=== PATIENT | male | born 1950 | race Caucasian/White ===

== ENCOUNTER 2017-01-02 23:42 | Emergency (ER) | payer MEDICARE, OTHER ==
[2017-01-03] MEDS ORDERED: CEPHALEXIN 250 MG CAPSULE PO STA (01:09)
[2017-01-03] MEDS ORDERED: CEPHALEXIN 250 MG CAPSULE PO ONE (01:12)
== END 2017-01-03 01:20 | disposition home or self-care (01) ==
DX: T80.1XXA Vascular complications following infusion, transfusion and therapeutic injection, initial encounter (principal); I80.8 Phlebitis and thrombophlebitis of other sites; T82.898A Other specified complication of vascular prosthetic devices, implants and grafts, initial encounter; I10 Essential (primary) hypertension; J44.9 Chronic obstructive pulmonary disease, unspecified; K21.9 Gastro-esophageal reflux disease without esophagitis; Z87.891 Personal history of nicotine dependence
CPT/HCPCS: 99283; A9270

== ENCOUNTER 2017-03-12 08:53 | Outpatient (CLI) | payer MEDICARE, OTHER | END 2017-03-12 08:54 | disposition home or self-care (01) | LOC: LAB.R 08:53 | PROVIDERS: ATTEND Internal Medicine | DX: E78.2 Mixed hyperlipidemia (principal) ==

== ENCOUNTER 2017-07-23 16:16 | Outpatient (CLI) | payer MEDICARE, OTHER ==
[2017-07-23 13:06] LABS: CHOL/HDL RATIO 6.6 (<5.0); CHOLESTEROL 237 mg/dL; HDL CHOLESTEROL 36 mg/dL; LDL/HDL RATIO 4.4 (<3.6); TRIGLYCERIDES 220 mg/dL; VLDL CHOLESTEROL 44 mg/dL
== END 2017-07-23 16:17 | disposition home or self-care (01) ==
LOC: LAB.R 16:16
PROVIDERS: ATTEND Internal Medicine
DX: E78.5 Hyperlipidemia, unspecified (principal)
CPT/HCPCS: 80061

== ENCOUNTER 2018-01-20 16:11 | Emergency (ER) | payer MEDICARE, OTHER ==
[2018-01-20] MEDS ORDERED: SODIUM CHLORIDE 0.9% 500 ML IV ONE (17:27)
[2018-01-20] MEDS ORDERED: SODIUM CHLORIDE 0.9% 1,000 ML IV ONE (17:27)
[2018-01-20] MEDS ORDERED: METOPROLOL 5 MG/5 ML VIAL IVP STA ×2 (17:28→18:04)
--- NOTE | 2018-01-20 17:32 | ED Physician Documentation ---
PD HPI CHEST PAIN - Stated complaint Stated Complaint: CP/SOA/PASSED OUT - Chief complaint Chief Complaint: Cardiac - History obtained from History obtained from: Patient, Family - History of Present Illness Timing - onset: Today (He is undergoing high-dose steroid treatment for a side effect that he was on for chemotherapy. He has had A. fib before and was cardioverted in May of last year and a different facility. He is maintained on Eliquis. Today at 4 AM he developed burning central chest pain and had a syncopal episode later in the day and is short of breath.) Review of Systems Ten Systems: 10 systems reviewed and negative Constitutional: reports: Fatigue. denies: Fever, Chills Cardiac: reports: Chest pain / pressure. denies: Palpitations, Pedal edema, Calf pain Respiratory: reports: Dyspnea. denies: Cough GI: denies: Abdominal Pain PD PAST MEDICAL HISTORY - Past Medical History Cardiovascular: Hypertension Respiratory: COPD Endocrine/Autoimmune: None GI: GERD : None HEENT: None Psych: None Musculoskeletal: None Derm: None - Past Surgical History Past Surgical History: Yes HEENT: Cataracts - Present Medications Home Medications: Ambulatory Orders Medication Instructions Recorded Confirmed Lansoprazole [Prevacid] 30 mg PO DAILY 05/16/14 01/02/17 Digoxin 125 mcg ORAL DAILY 01/02/17 01/02/17 Metoprolol Succinate 150 mg ORAL BID 01/02/17 01/02/17 Apixaban [Eliquis] 01/20/18 Lisinopril 01/20/18 predniSONE [Prednisone] 01/20/18 01/20/18 - Allergies Allergies/Adverse Reactions: Allergies Allergy/AdvReac Type Severity Reaction Status Date / Time No Known Drug Allergies Allergy Verified 01/02/17 23:50 - Social History Does the pt smoke?: No Smoking Status: Former smoker Does the pt drink ETOH?: Yes Does the pt have substance abuse?: No - Immunizations Immunizations are current?: Yes - POLST Patient has POLST: No PD ED PE NORMAL - Vitals Vital signs reviewed: Yes - General General: Alert and oriented X 3, No acute distress - HEENT HEENT: PERRL, EOMI - Neck Neck: Supple, no meningeal sign, No bony TTP - Cardiac Cardiac: Other (Rapid and irregular) - Respiratory Respiratory: No respiratory distress, Clear bilaterally - Abdomen Abdomen: Normal bowel sounds, Soft, Non tender - Back Back: No CVA TTP, No spinal TTP - Derm Derm: Normal color, Warm and dry - Extremities Extremities: No edema, No calf tenderness / cord - Neuro Neuro: Alert and oriented X 3, Normal speech - Psych Psych: Normal mood, Normal affect Results - Vitals Vitals: Vital Signs - 24 hr 01/20/18 01/20/18 01/20/18 16:25 18:13 18:16 Temperature 35.9 C L Heart Rate 90 127 H 120 H Respiratory 16 18 Rate Blood Pressure 111/58 L 116/67 108/62 O2 Saturation 99 97 01/20/18 01/20/18 01/20/18 18:21 18:42 18:48 Temperature Heart Rate 112 H 116 H 137 H Respiratory Rate Blood Pressure 116/73 112/63 110/68 O2 Saturation 01/20/18 01/20/18 01/20/18 18:57 19:22 19:29 Temperature Heart Rate 130 H 109 H 88 Respiratory Rate Blood Pressure 112/36 L 106/71 96/67 O2 Saturation 01/20/18 01/20/18 01/20/18 19:37 19:46 20:05 Temperature Heart Rate 81 87 46 L Respiratory 16 Rate Blood Pressure 94/67 102/73 106/70 O2 Saturation 99 01/20/18 21:00 Temperature Heart Rate 46 L Respiratory 16 Rate Blood Pressure 113/71 O2 Saturation 100 Oxygen O2 Source Room air - EKG (time done) 1618 Rate: Rate (enter#) (138) Rhythm: Atrial fibrillation [place]: Normal Ischemia: ST depression Computer interpretation: Agree with computer 2006 Rate: Rate (enter#) (44) Rhythm: Sinus bradycardia [place]: Normal Intervals: Normal [place] QRS: Normal Ischemia: Normal ST segments Computer interpretation: Agree with computer - Labs Labs: Laboratory Tests 01/20/18 01/20/18 01/20/18 17:45 17:45 17:45 WBC 11.4 H RBC 5.22 Hgb 15.7 Hct 48.6 MCV 93.1 MCH 30.1 MCHC 32.4 RDW 13.2 Plt Count 411 MPV 7.2 L Neut # 9.0 H Lymph # 1.9 [place] # 0.4 Eos # 0.0 Baso # 0.2 H Absolute Nucleated RBC 0.00 Nucleated RBC % 0.0 Sodium 135 Potassium 4.2 Chloride 103 Carbon Dioxide 25 Anion Gap 7.0 BUN 20 Creatinine 1.0 Estimated GFR (MDRD) 74 L Glucose 111 H Calcium 8.6 Magnesium 2.1 Total Bilirubin 0.6 AST 23 ALT 31 Alkaline Phosphatase 36 L Troponin I Total Protein 6.7 Albumin 3.4 Globulin 3.3 Albumin/Globulin Ratio 1.0 Lipase 22 Last Dose Date UNK Last Dose Time UNK Digoxin 0.5 01/20/18 17:45 WBC RBC Hgb Hct MCV MCH MCHC RDW Plt Count MPV Neut # Lymph # [place] # Eos # Baso # Absolute Nucleated RBC Nucleated RBC % Sodium Potassium Chloride Carbon Dioxide Anion Gap BUN Creatinine Estimated GFR (MDRD) Glucose Calcium Magnesium Total Bilirubin AST ALT Alkaline Phosphatase Troponin I 0.08 Total Protein Albumin Globulin Albumin/Globulin Ratio Lipase Last Dose Date Last Dose Time Digoxin PD MEDICAL DECISION MAKING - ED course ED course: 67-year-old gentleman with symptomatic recurrent atrial fibrillation with RVR starting at 4 AM this morning. He was administered first divided doses of metoprolol without much relief, diltiazem was then administered with rate control but not conversion and during her procainamide drip he did convert, he did have a sinus pause during that but he was observed for a while after that and maintained normal sinus rhythm. Departure - Departure Disposition: 01 Home, Self Care Clinical Impression: Atrial fibrillation Qualifiers: Atrial fibrillation type: paroxysmal Qualified Code(s): I48.0 - Paroxysmal atrial fibrillation Condition: Good Record reviewed to determine appropriate education?: Yes Instructions: Atrial Fibrillation Dc Comments: Continue eliquis. 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 Discharge Date/Time: 01/20/18 21:24
[2018-01-20 17:53] LABS: BASOPHILS # (AUTO) 0.2 10^3/uL (0.0-0.1); BASOPHILS % (AUTO) 1.4 %; EOSINOPHILS % (AUTO) 0.1 %; HGB - HEMOGLOBIN 15.7 g/dL (14.0-18.0); LYMPHOCYTES # (AUTO) 1.9 10^3/uL (1.5-3.5); MEAN CORPUSCULAR HEMOGLOBIN 30.1 pg (27.0-31.0); MEAN CORPUSCULAR HGB CONC 32.4 g/dL (32.0-36.0); MEAN CORPUSCULAR VOLUME 93.1 fL (80.0-94.0); MEAN PLATELET VOLUME 7.2 fL (7.4-11.4); MONOCYTES # (AUTO) 0.4 10^3/uL (0.0-1.0); MONOCYTES % (AUTO) 3.2 %; NEUTROPHILS % (AUTO) 78.3 %; PLT - PLATELET COUNT 411 10^3/uL (130-450); RED BLOOD COUNT 5.22 10^6/uL (4.70-6.10); RED CELL DISTRIBUTION WIDTH 13.2 % (12.0-15.0); WHITE BLOOD COUNT 11.4 x10^3/uL (4.8-10.8)
[2018-01-20 18:04] LABS: ALBUMIN 3.4 g/dL (3.2-5.5); BILIRUBIN,TOTAL 0.6 mg/dL (0.2-1.0); CALCIUM 8.6 mg/dL (8.5-10.3); MAGNESIUM 2.1 mg/dL (1.7-2.8); TOTAL PROTEIN 6.7 g/dL (6.7-8.2)
[2018-01-20] MEDS ORDERED: PROCAINAMIDE 1,000 MG in SODIUM CHLORIDE 0.9% 240 ML IV STA (18:04)
[2018-01-20 18:09] LABS: DIGOXIN 0.5 ng/mL
[2018-01-20] MEDS ORDERED: diltiaZEM INJ 5 MG/ML VIAL IVP STA (18:46)
[2018-01-20 21:02] VITALS: BP 113/71
== END 2018-01-20 21:24 | disposition home or self-care (01) ==
LOC: ED 16:11
DX: I48.0 Paroxysmal atrial fibrillation (principal); I10 Essential (primary) hypertension; J44.9 Chronic obstructive pulmonary disease, unspecified; K21.9 Gastro-esophageal reflux disease without esophagitis; Z87.891 Personal history of nicotine dependence; Z79.01 Long term (current) use of anticoagulants; Z79.52 Long term (current) use of systemic steroids
CPT/HCPCS: 36415; 80053; 80162; 83690; 83735; 84484; 85025; 93005; 96361; 96374; 96375; 96376; 99284; J2690

== ENCOUNTER 2018-02-23 07:25 | Emergency (ER) | payer MEDICARE, OTHER ==
[2018-02-23] MEDS ORDERED: SODIUM CHLORIDE 0.9% 1,000 ML IV ONE ×2 (07:36→12:47)
[2018-02-23] MEDS ORDERED: PROCAINAMIDE 1,000 MG in SODIUM CHLORIDE 0.9% 240 ML IV STA ×4 (07:38)
--- NOTE | 2018-02-23 07:40 | ED Physician Documentation ---
History of Present Illness - Stated complaint Stated Complaint: CHEST PAIN - Chief complaint Chief Complaint: Cardiac - Additonal information Additional information: hx from pt 67 male known hx a fib seen early january for a fib and chemically cardioverted with procainamide is on eliquis is normally sinus this Am developed weakness and soa which he feels signalled the onset of another epsiode of a fib no CP has been compliant with his meds including eliquis since last visit has dced metoprolol and changed to taztia (dilt) Review of Systems Constitutional: denies: Fever Cardiac: denies: Chest pain / pressure, Palpitations Respiratory: reports: Dyspnea GI: denies: Nausea, Vomiting Musculoskeletal: denies: Extremity swelling Neurologic: reports: Generalized weakness Endocrine: reports: Easy bruising / bleeding (eliquis) Immunocompromised: denies: Immunocompromised PD PAST MEDICAL HISTORY - Past Medical History Cardiovascular: Hypertension, Atrial fibrillation Respiratory: COPD Endocrine/Autoimmune: None GI: GERD : None HEENT: None Psych: None Musculoskeletal: None Derm: None - Past Surgical History Past Surgical History: Yes HEENT: Cataracts - Present Medications Home Medications: Ambulatory Orders Medication Instructions Recorded Confirmed Lansoprazole [Prevacid] 30 mg PO DAILY 05/16/14 01/02/17 Digoxin 125 mcg ORAL DAILY 01/02/17 01/02/17 Apixaban [Eliquis] 01/20/18 Lisinopril 01/20/18 Diltiazem HCl [Taztia Xt] 180 mg PO 02/23/18 - Allergies Allergies/Adverse Reactions: Allergies Allergy/AdvReac Type Severity Reaction Status Date / Time No Known Drug Allergies Allergy Verified 01/02/17 23:50 - Social History Does the pt smoke?: No Smoking Status: Former smoker Does the pt drink ETOH?: Yes Does the pt have substance abuse?: No - Immunizations Immunizations are current?: Yes - POLST Patient has POLST: No PD ED PE NORMAL - Vitals Vital signs reviewed: Yes - General General: Alert and oriented X 3 - HEENT HEENT: Atraumatic - Neck Neck: Supple, no meningeal sign - Cardiac Cardiac: No: RRR (tachy) - Respiratory Respiratory: No respiratory distress, Clear bilaterally - Derm Derm: Normal color - Extremities Extremities: No deformity, Normal ROM s pain, No edema, No calf tenderness / cord - Neuro Neuro: Alert and oriented X 3 Results - Vitals Vitals: Vital Signs - 24 hr 02/23/18 02/23/18 07:27 11:52 Temperature 36.0 C L Heart Rate 121 H 100 Respiratory 24 21 Rate Blood Pressure 107/73 105/49 L O2 Saturation 100 96 Oxygen O2 Source Room air - EKG (time done) 0734 Rate: Rate (enter#) (121) Rhythm: Atrial fibrillation Ischemia: ST depression (most c/w dig effect) - Labs Labs: Laboratory Tests 02/23/18 02/23/18 02/23/18 08:17 08:17 08:17 WBC 10.1 RBC 4.45 L Hgb 13.5 L Hct 39.8 L MCV 89.4 MCH 30.4 MCHC 34.0 RDW 12.8 Plt Count 485 H MPV 6.7 L Neut # 5.8 Lymph # 3.2 [place] # 0.8 Eos # 0.2 Baso # 0.0 Absolute Nucleated RBC 0.00 Nucleated RBC % 0.0 Sodium 133 L Potassium 3.7 Chloride 99 L Carbon Dioxide 21 Anion Gap 13.0 BUN 12 Creatinine 1.1 Estimated GFR (MDRD) 67 L Glucose 123 H Calcium 8.7 Troponin I < 0.04 Last Dose Date Last Dose Time Digoxin 02/23/18 08:17 WBC RBC Hgb Hct MCV MCH MCHC RDW Plt Count MPV Neut # Lymph # [place] # Eos # Baso # Absolute Nucleated RBC Nucleated RBC % Sodium Potassium Chloride Carbon Dioxide Anion Gap BUN Creatinine Estimated GFR (MDRD) Glucose Calcium Troponin I Last Dose Date Unknown Last Dose Time Unknown Digoxin 1.1 PD MEDICAL DECISION MAKING - ED course ED course: pt given 1 g procainamide IV s cardioversion went to pt to discuss electric cardivert and he declines 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 he is rate controlled (on CCB BB dig) and also on eliquis so this seems reasonable will call his cardio and plan to dc spoke to cardio Dr Molina who will see pt next Wed at 1130 Am and rec he inc his dilt from 180 daily to 240 daily and continue eliquis and dig Departure - Departure Disposition: Home, Self Care Clinical Impression: Atrial fibrillation Qualifiers: Atrial fibrillation type: unspecified Qualified Code(s): I48.91 - Unspecified atrial fibrillation Condition: Good Instructions: ED Afib Follow-Up: Alex Rowe MD [Primary Care Provider] - Comments: I spoke to Dr Molina and he will see you in the office next Wednesday at 1130 Continue your usual medications but increase the diltiazem from 180 to 240 daily Please monitor your heart rate and blood pressure frequently at home - if your heart rate is over 120 or your blood pressure is less than 100 please come back to the ER or call your senior sales manager Return if worse in any way
[2018-02-23 08:24] LABS: BASOPHILS % (AUTO) 0.4 %; EOSINOPHILS # (AUTO) 0.2 10^3/uL (0.0-0.7); EOSINOPHILS % (AUTO) 2.2 %; HGB - HEMOGLOBIN 13.5 g/dL (14.0-18.0); LYMPHOCYTES # (AUTO) 3.2 10^3/uL (1.5-3.5); LYMPHOCYTES % (AUTO) 31.7 %; MEAN CORPUSCULAR HEMOGLOBIN 30.4 pg (27.0-31.0); MEAN CORPUSCULAR VOLUME 89.4 fL (80.0-94.0); MEAN PLATELET VOLUME 6.7 fL (7.4-11.4); MONOCYTES # (AUTO) 0.8 10^3/uL (0.0-1.0); MONOCYTES % (AUTO) 8.3 %; NEUTROPHILS # (AUTO) 5.8 10^3/uL (1.5-6.6); NEUTROPHILS % (AUTO) 57.4 %; PLT - PLATELET COUNT 485 10^3/uL (130-450); RED BLOOD COUNT 4.45 10^6/uL (4.70-6.10); RED CELL DISTRIBUTION WIDTH 12.8 % (12.0-15.0); WHITE BLOOD COUNT 10.1 x10^3/uL (4.8-10.8)
--- NOTE | 2018-02-23 08:24 | XRAY Preliminary Report ---
Exam: XR CHEST 1 VIEW X-RAY IMPRESSION: No radiographically apparent acute abnormality in the chest. [facility] SITE ID: [id number]
--- NOTE | 2018-02-23 08:25 | XRAY Report ---
EXAM: CHEST RADIOGRAPHY EXAM DATE: 02/23/2018 07:56 AM. CLINICAL HISTORY: [place]. COMPARISON: 02/25/2015. TECHNIQUE: 1 view. 2 images are provided. FINDINGS: Lungs/Pleura: No focal consolidation evident. No pleural effusion. No pneumothorax. Mediastinum: Borderline enlargement of the cardiac silhouette. Other: None. IMPRESSION: No radiographically apparent acute abnormality in the chest. [facility] Referring Provider Line: [phone] SITE ID: [id number]
[2018-02-23 08:35] LABS: CALCIUM 8.7 mg/dL (8.5-10.3); CREATININE 1.1 mg/dL (0.6-1.2)
[2018-02-23 08:48] LABS: DIGOXIN 1.1 ng/mL
[2018-02-23 11:52] VITALS: BP 105/49
== END 2018-02-23 14:45 | disposition home or self-care (01) ==
LOC: ED 07:25
DX: I48.91 Unspecified atrial fibrillation (principal); I10 Essential (primary) hypertension; J44.9 Chronic obstructive pulmonary disease, unspecified; Z87.891 Personal history of nicotine dependence; Z79.01 Long term (current) use of anticoagulants; K21.9 Gastro-esophageal reflux disease without esophagitis
CPT/HCPCS: 36415; 71045; 80048; 80162; 84484; 85025; 93005; 96374; 96376; 99282; 99284; J2690

== ENCOUNTER 2018-10-13 19:18 | Outpatient (CLI) | payer MEDICARE, OTHER | END 2018-10-13 19:19 | disposition critical access hospital (66) | LOC: EMS 19:18 | PROVIDERS: ATTEND Surgery | DX: F41.9 Anxiety disorder, unspecified (principal) | CPT/HCPCS: A0425; A0427 ==

== ENCOUNTER 2018-10-13 19:42 | Inpatient (IN) | payer MEDICARE, OTHER ==
[2018-10-13] MEDS ORDERED: diltiaZEM INJ 5 MG/ML VIAL IVP STA ×4 (20:02→22:41)
--- NOTE | 2018-10-13 20:05 | ED Physician Documentation ---
History of Present Illness - Stated complaint Stated Complaint: SHAKING - Chief complaint Chief Complaint: General - History obtained from History obtained from: Patient - History of Present Illness Timing: Today (This is a 68-year-old gentleman with history of melanoma and he went to the [facility] for an injection of T VAC today in his right leg where he has tumors. He has a history of long-standing atrial fibrillation maintained on metoprolol 150 mg twice daily. On the way home from the clinic he developed shaking all over and felt very cold with a nonproductive cough. Denies urinary complaints or pain. He has had this same medication in the past without issues.) Review of Systems Constitutional: reports: Chills Nose: denies: Rhinorrhea / runny nose Throat: denies: Sore throat Cardiac: denies: Chest pain / pressure, Palpitations Respiratory: reports: Dyspnea, Cough GI: denies: Abdominal Pain, Nausea, Vomiting PD PAST MEDICAL HISTORY - Past Medical History Past Medical History: Yes Cardiovascular: Hypertension, Atrial fibrillation Respiratory: COPD Endocrine/Autoimmune: None GI: GERD : None HEENT: None Psych: None Musculoskeletal: None Derm: None Other Past Medical History: Melanom [place] - Past Surgical History Past Surgical History: Yes HEENT: Cataracts - Present Medications Home Medications: Ambulatory Orders Medication Instructions Recorded Confirmed Lansoprazole [Prevacid] 30 mg PO DAILY 05/16/14 01/02/17 Digoxin 125 mcg ORAL DAILY 01/02/17 01/02/17 Apixaban [Eliquis] 01/20/18 Lisinopril 01/20/18 Diltiazem HCl [Taztia Xt] 180 mg PO 02/23/18 - Allergies Allergies/Adverse Reactions: Allergies Allergy/AdvReac Type Severity Reaction Status Date / Time No Known Drug Allergies Allergy Verified 10/13/18 19:55 - Social History Does the pt smoke?: No Smoking Status: Never smoker Does the pt drink ETOH?: Yes ETOH Use: Beer Does the pt have substance abuse?: No - Immunizations Immunizations are current?: Yes - POLST Patient has POLST: No PD ED PE NORMAL - Vitals Vital signs reviewed: Yes - General General: Alert and oriented X 3 (He is in rapid atrial fibrillation and he is tremulous) - HEENT HEENT: PERRL, EOMI - Neck Neck: Supple, no meningeal sign, No bony TTP - Cardiac Cardiac: Other (Irregularly irregular without murmur, rapid) - Respiratory Respiratory: Other (Diminished throughout) - Abdomen Abdomen: Soft, Non tender - Back Back: No CVA TTP, No spinal TTP - Derm Derm: Normal color, Warm and dry - Extremities Extremities: Normal ROM s pain, No calf tenderness / cord - Neuro Neuro: Alert and oriented X 3, Normal speech - Psych Psych: Normal mood, Normal affect Results - Vitals Vitals: Vital Signs - 24 hr 10/13/18 10/13/18 10/13/18 19:46 20:27 20:43 Temperature 37.0 C Heart Rate 141 H 150 H 125 H Respiratory 23 32 H 22 Rate Blood Pressure 134/98 H 145/83 H 141/95 H O2 Saturation 100 95 10/13/18 10/13/18 10/13/18 20:48 20:59 21:11 Temperature 37.0 C Heart Rate 120 H 119 H 108 H Respiratory 30 H 22 19 Rate Blood Pressure 154/77 H 131/78 H 131/78 H O2 Saturation 97 98 96 10/13/18 10/13/18 10/13/18 21:31 21:39 22:13 Temperature Heart Rate 105 H 94 118 H Respiratory 25 H 19 22 Rate Blood Pressure 135/64 H 130/85 H 143/76 H O2 Saturation 97 97 95 Oxygen O2 Source Room air - EKG (time done) 2017 Rate: Rate (enter#) (143) Rhythm: Atrial fibrillation [place]: Normal QRS: Low voltage Ischemia: Other (Mild lateral ST depression which is likely rate related.) Computer interpretation: Agree with computer - Labs Labs: Laboratory Tests 10/13/18 10/13/18 10/13/18 19:50 20:31 20:58 WBC RBC Hgb Hct MCV MCH MCHC RDW Plt Count MPV Neut # (Auto) Lymph # (Auto) [place] # (Auto) Eos # (Auto) Baso # (Auto) Absolute Nucleated RBC Nucleated RBC % Sodium 136 Potassium 3.9 Chloride 103 Carbon Dioxide 21 Anion Gap 12.0 BUN 16 Creatinine 1.2 Estimated GFR (MDRD) 60 L Glucose 102 H Lactic Acid Calcium 9.0 Total Bilirubin 1.1 H AST 33 ALT 29 Alkaline Phosphatase 39 L Total Creatine Kinase 61 CK-MB (CK-2) Troponin I Total Protein 7.5 Albumin 4.1 Globulin 3.4 Albumin/Globulin Ratio 1.2 Lipase 34 Urine Color YELLOW Urine Clarity CLEAR Urine pH 6.0 Ur Specific [place] 1.025 Urine Protein NEGATIVE Urine Glucose (UA) NEGATIVE Urine Ketones NEGATIVE Urine Occult Blood SMALL H Urine Nitrite NEGATIVE Urine Bilirubin NEGATIVE Urine Urobilinogen 0.2 (NORMAL) Ur Leukocyte Esterase NEGATIVE Urine RBC 0-5 Urine WBC 0-3 Ur Squamous Epith Cells RARE Squamous Urine Bacteria Rare Ur Microscopic Review INDICATED Urine Culture Comments NOT INDICATED Last Dose Date Last Dose Time Digoxin Ethyl Alcohol < 5.0 Influenza A (Rapid) Negative Influenza B (Rapid) Negative 10/13/18 10/13/18 10/13/18 20:58 20:58 20:58 WBC RBC Hgb Hct MCV MCH MCHC RDW Plt Count MPV Neut # (Auto) Lymph # (Auto) [place] # (Auto) Eos # (Auto) Baso # (Auto) Absolute Nucleated RBC Nucleated RBC % Sodium Potassium Chloride Carbon Dioxide Anion Gap BUN Creatinine Estimated GFR (MDRD) Glucose Lactic Acid 3.7 H* Calcium Total Bilirubin AST ALT Alkaline Phosphatase Total Creatine Kinase CK-MB (CK-2) 1.3 Troponin I < 0.04 Total Protein Albumin Globulin Albumin/Globulin Ratio Lipase Urine Color Urine Clarity Urine pH Ur Specific [place] Urine Protein Urine Glucose (UA) Urine Ketones Urine Occult Blood Urine Nitrite Urine Bilirubin Urine Urobilinogen Ur Leukocyte Esterase Urine RBC Urine WBC Ur Squamous Epith Cells Urine Bacteria Ur Microscopic Review Urine Culture Comments Last Dose Date Not Reportable Last Dose Time Not Reportable Digoxin 0.6 Ethyl Alcohol Influenza A (Rapid) Influenza B (Rapid) 10/13/18 21:54 WBC 12.8 H RBC 4.51 L Hgb 14.4 Hct 43.3 MCV 95.9 H MCH 31.9 H MCHC 33.2 RDW 14.0 Plt Count 254 MPV 7.8 Neut # (Auto) 10.5 H Lymph # (Auto) 1.4 L [place] # (Auto) 0.4 Eos # (Auto) 0.3 Baso # (Auto) 0.1 Absolute Nucleated RBC 0.02 Nucleated RBC % 0.1 Sodium Potassium Chloride Carbon Dioxide Anion Gap BUN Creatinine Estimated GFR (MDRD) Glucose Lactic Acid Calcium Total Bilirubin AST ALT Alkaline Phosphatase Total Creatine Kinase CK-MB (CK-2) Troponin I Total Protein Albumin Globulin Albumin/Globulin Ratio Lipase Urine Color Urine Clarity Urine pH Ur Specific [place] Urine Protein Urine Glucose (UA) Urine Ketones Urine Occult Blood Urine Nitrite Urine Bilirubin Urine Urobilinogen Ur Leukocyte Esterase Urine RBC Urine WBC Ur Squamous Epith Cells Urine Bacteria Ur Microscopic Review Urine Culture Comments Last Dose Date Last Dose Time Digoxin Ethyl Alcohol Influenza A (Rapid) Influenza B (Rapid) - Rads (name of study) 1v chest Radiology: EMP read contemporaneously (Left basilar opacity) PD MEDICAL DECISION MAKING - ED course ED course: This is a 68-year-old gentleman with metastatic melanoma and atrial fibrillation who presents with Reiger's and atrial fibrillation with RVR and acute cough. His atrial fibrillation was treated with divided doses of diltiazem resulting in borderline rate control as well as his usual oral metoprolol. Lab work and chest x-ray demonstrate a left basilar pneumonia with elevated white count and lactate for which he was administered IV fluids, Rocephin, and azithromycin after blood cultures were obtained. Spoke with Dr. Huff for admission at 10:37 PM. Departure - Departure Disposition: [facility] DC/Xfer Clinical Impression: Atrial fibrillation with RVR Pneumonia Qualifiers: Pneumonia type: due to unspecified organism Laterality: left Lung location: lower lobe of lung Qualified Code(s): J18.1 - Lobar pneumonia, unspecified organism Condition: Serious Forms: Activity restrictions
[2018-10-13 20:09] LABS: BILIRUBIN,URINE NEGATIVE (NEGATIVE); GLUCOSE, URINE (UA) NEGATIVE (NEGATIVE); KETONES,URINE (UA) NEGATIVE (NEGATIVE); LEUKOCYTE ESTERASE, URINE NEGATIVE (NEGATIVE); NITRITE,URINE NEGATIVE (NEGATIVE); OCCULT BLOOD,URINE SMALL (NEGATIVE); PROTEIN,URINE NEGATIVE (NEGATIVE); UROBILINOGEN,URINE 0.2 (NORMAL) E.U./dL (NORMAL)
[2018-10-13 20:10] LABS: CLARITY,URINE CLEAR (CLEAR)
[2018-10-13 20:20] LABS: BACTERIA,URINE Rare /HPF (None Seen); RBC,URINE 0-5 /HPF (0-5); SQUAMOUS EPITHELIAL CELL,UR RARE Squamous (<= Few)
[2018-10-13] MEDS ORDERED: METOPROLOL SUCCINATE 50 MG TABLET PO ONE (20:35)
[2018-10-13] MEDS ORDERED: METOPROLOL SUCCINATE 50 MG TABLET PO STA (20:41)
[2018-10-13 21:15] LABS: ALBUMIN 4.1 g/dL (3.2-5.5); ALBUMIN/GLOBULIN RATIO 1.2 (1.0-2.2); ALKALINE PHOSPHATASE 39 IU/L (42-121); ALT ALANINE AMINOTRANSFERASE 29 IU/L (10-60); AST ASPARTATE AMINOTRANSFERASE 33 IU/L (10-42); BILIRUBIN,TOTAL 1.1 mg/dL (0.2-1.0); BUN - BLOOD UREA NITROGEN 16 mg/dL (6-20); CARBON DIOXIDE - CO2 21 mmol/L (21-32); CHLORIDE 103 mmol/L (101-111); CK- CREATINE KINASE 61 IU/L (22-269); CREATININE 1.2 mg/dL (0.6-1.2); GFR - MDRD 60 (>89); GLUCOSE 102 mg/dL (70-100); LIPASE 34 U/L (22-51); SODIUM 136 mmol/L (135-145); TOTAL PROTEIN 7.5 g/dL (6.7-8.2)
[2018-10-13 21:16] LABS: TROPONIN I < 0.04 ng/mL (<0.49)
--- NOTE | 2018-10-13 21:16 | XRAY Report ---
Reason: rigors, cough Procedure Date: 10/13/2018 Accession Number: [id number] / [id number] Procedure: XR - Chest 1 View X-Ray CPT Code: 58400 FULL RESULT: EXAM: CHEST RADIOGRAPHY EXAM DATE: 10/13/2018 09:00 PM. CLINICAL HISTORY: Rigors, cough. COMPARISON: CHEST 1 VIEW 02/23/2018 7:56 AM. TECHNIQUE: 1 view. FINDINGS: Lungs/Pleura: Lung volumes mildly low. Mild left basilar airspace opacity. Right lung clear. No peripheral interstitial or megaly. No pneumothorax or gross pleural fluid. Mediastinum: Within exam limitations, the cardiomediastinal contour is normal. Other: None. IMPRESSION: Mildly low lung volumes with mild left basilar airspace opacity which may reflect atelectasis or pneumonitis. [facility]
[2018-10-13 21:18] LABS: CREATINE KINASE MB 1.3 ng/mL (0.6-6.3)
[2018-10-13] MEDS ORDERED: SODIUM CHLORIDE 0.9% 1,000 ML IV ONE (21:19)
[2018-10-13 21:24] LABS: DIGOXIN 0.6 ng/mL
[2018-10-13 22:03] LABS: BASOPHILS # (AUTO) 0.1 10^3/uL (0.0-0.1); EOSINOPHILS # (AUTO) 0.3 10^3/uL (0.0-0.7); EOSINOPHILS % (AUTO) 2.6 %; HGB - HEMOGLOBIN 14.4 g/dL (14.0-18.0); LYMPHOCYTES # (AUTO) 1.4 10^3/uL (1.5-3.5); LYMPHOCYTES % (AUTO) 10.9 %; MEAN CORPUSCULAR HEMOGLOBIN 31.9 pg (27.0-31.0); MEAN CORPUSCULAR HGB CONC 33.2 g/dL (32.0-36.0); MEAN CORPUSCULAR VOLUME 95.9 fL (80.0-94.0); MEAN PLATELET VOLUME 7.8 fL (7.4-11.4); MONOCYTES # (AUTO) 0.4 10^3/uL (0.0-1.0); MONOCYTES % (AUTO) 2.9 %; NEUTROPHILS # (AUTO) 10.5 10^3/uL (1.5-6.6); NEUTROPHILS % (AUTO) 82.6 %; PLT - PLATELET COUNT 254 10^3/uL (130-450); RED BLOOD COUNT 4.51 10^6/uL (4.70-6.10); WHITE BLOOD COUNT 12.8 x10^3/uL (4.8-10.8)
[2018-10-13] MEDS ORDERED: ONDANSETRON 4 MG/2 ML VIAL IVP STA (22:12)
[2018-10-13] MEDS ORDERED: cefTRIAXone 2 GM in SODIUM CHLORIDE 0.9% MINIBAG 100 ML IV STA (22:24)
[2018-10-13] MEDS ORDERED: AZITHROMYCIN INJ 500 MG in SODIUM CHLORIDE 0.9% 250 ML IV STA (22:24)
[2018-10-13] MEDS ORDERED: HYDROcod/ACETAM 5/325 MG TABLET PO PRN (23:24)
[2018-10-13] MEDS ORDERED: ACETAMINOPHEN 325 MG TABLET PO PRN (23:24)
[2018-10-13] MEDS ORDERED: ONDANSETRON 4 MG/2 ML VIAL IVP PRN (23:24)
[2018-10-13] MEDS ORDERED: TEMAZEPAM 15 MG CAPSULE PO PRN (23:24)
[2018-10-13] MEDS ORDERED: MORPHINE 2 MG/ML CARPUJECT IVP PRN (23:24)
[2018-10-13] MEDS ORDERED: PROCHLORPERAZINE 10 MG/2 ML VIAL IVP PRN (23:24)
--- NOTE | 2018-10-13 23:43 | HISTORY & PHYSICAL EXAMINATION ---
Chief Complaint - Chief Complaint Chief Complaint: Shaking and chills History of Present Illness - Admitted From Admitted From:: Emergency department - History Obtained From Records Reviewed: Emergency department records History obtained from: Dr. 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 He went there today for a T VAC, which is a transcutaneous injectable immunomodulator treatment. Things were going fairly well however [place] [facility] he started to have violent shaking and chills and described what is likely rigors. Shortly after they returned to the [facility] and started their drive back [place], he continued to feel worse and at this point paramedics were called. Patient has a known history of atrial fibrillation but this has been fairly well controlled and is status post 2 failed ablations in the last year. In the emergency room evaluation produced findings of atrial fibrillation with rapid ventricular response with heart rates in the 150s initially.He eventually received 50 mg of IV Cardizem, 10 mg at a time,Which was successful in bringing his heart rate down to the 115-120 range. Labs were also pertinent for an elevated lactic acid of 3.7 with only mildly increased WBCs and no other signif icant abnormality. A chest x-ray was however suggestive of a possible consolidation at the base of the left lung and hospitalist service was called to admit the patient for possible community-acquired pneumonia with sepsis and atrial fibrillation with rapid ventricular response. History - Past Medical History Cardiovascular: reports: Hypertension, Atrial fibrillation Respiratory: reports: COPD Endocrine/Autoimmune: reports: None GI: reports: GERD : reports: None HEENT: reports: None Psych: reports: None Musculoskeletal: reports: None Derm: reports: None, Other (Malignant melanoma with initial lesion on the right heel and subsequent lesions on the inner thigh and proximal thigh) MRSA Hx?: No Other Past Medical History: Melanom CA - Past Surgical History HEENT: reports: Cataracts Derm: reports: Skin grafts, Skin cancer surgery - Family & Social History Family History Comment/Other: Patient denies any family medical history Living arrangement: At home Living Situation: With spouse/s.o. Social History Notes: Patient is a retired [place] who lives in [place]. Admits to drinking a 6 pack a day for a long period of time. Several years ago he went 4 months without drinking and never had withdrawal symptoms. - Substance History Use: Uses substance without health or social issues: Alcohol - POLST Patient has POLST: No POLST Status: Full Code Meds/Allgy - Home Medications Home Medications: Ambulatory Orders Medication Instructions Recorded Confirmed Lansoprazole [Prevacid] 30 mg PO DAILY 05/16/14 01/02/17 Digoxin 125 mcg ORAL DAILY 01/02/17 01/02/17 Apixaban [Eliquis] 01/20/18 Lisinopril 01/20/18 Diltiazem HCl [Taztia Xt] 180 mg PO 02/23/18 - Allergies Allergies/Adverse Reactions: Allergies Allergy/AdvReac Type Severity Reaction Status Date / Time No Known Drug Allergies Allergy Verified 10/13/18 19:55 Review of Systems - Constitutional Constitutional: reports: Chills, Malaise, Weakness. denies: Night sweats, Weight loss - Cardiovascular Cariovascular: reports: Irregular heart rate. denies: Chest pain - Respiratory Respiratory: reports: Cough, SOB with exertion, Other (Patient describes chest congestion consistent with having a cold) - Gastrointestinal Gastrointestinal: denies: Abdominal pain, Abdominal distention - Genitourinary Genitourinary: denies: Dysuria, Frequency - Integumentary Integumentary: reports: Other (No redness or erythema or signs of infection from recent biopsy sites) - All Other Systems All Other Systems: reports: Reviewed and negative Prior Level of Functionality: Independent Exam - Vital Signs Reviewed Vital Signs: Yes Vital Signs: Vital Signs x48h Temp Pulse Resp BP Pulse Ox 10/13/18 23:36 104 H 17 113/69 95 10/13/18 23:05 37.3 C 88 18 133/77 H 97 10/13/18 22:13 118 H 22 143/76 H 95 10/13/18 21:39 94 19 130/85 H 97 10/13/18 21:31 105 H 25 H 135/64 H 97 10/13/18 21:11 108 H 19 131/78 H 96 10/13/18 20:59 37.0 C 119 H 22 131/78 H 98 10/13/18 20:48 120 H 30 H 154/77 H 97 10/13/18 20:43 125 H 22 141/95 H 95 10/13/18 20:27 150 H 32 H 145/83 H 10/13/18 19:46 37.0 C 141 H 23 134/98 H 100 Vital Signs - 24 hr 10/13/18 10/13/18 10/13/18 19:46 20:27 20:43 Temperature 37.0 C Heart Rate 141 H 150 H 125 H Respiratory 23 32 H 22 Rate Blood Pressure 134/98 H 145/83 H 141/95 H O2 Saturation 100 95 10/13/18 10/13/18 10/13/18 20:48 20:59 21:11 Temperature 37.0 C Heart Rate 120 H 119 H 108 H Respiratory 30 H 22 19 Rate Blood Pressure 154/77 H 131/78 H 131/78 H O2 Saturation 97 98 96 10/13/18 10/13/18 10/13/18 21:31 21:39 22:13 Temperature Heart Rate 105 H 94 118 H Respiratory 25 H 19 22 Rate Blood Pressure 135/64 H 130/85 H 143/76 H O2 Saturation 97 97 95 10/13/18 10/13/18 10/14/18 23:05 23:36 00:07 Temperature 37.3 C Heart Rate 88 104 H 94 Respiratory 18 17 21 Rate Blood Pressure 133/77 H 113/69 101/54 L O2 Saturation 97 95 98 Oxygen O2 Source Room air - Physical Exam General Appearance: positive: No acute distress Eyes Bilateral: positive: Normal inspection ENT: positive: ENT inspection nml Neck: positive: Nml inspection Respiratory: positive: Chest non-tender, No respiratory distress, Breath sounds nml Cardiovascular: positive: No murmur, No gallop, Irregularly irregular, Tachycardia Peripheral Pulses: positive: 2+ Abdomen: positive: Non-tender, No organomegaly, Nml bowel sounds, No distention Skin: positive: Color nml, Other (Patient has a visible healed skin graft on the plantar aspect of the right calcaneus, he has a few areas of dry skin on the medial proximal thigh with a bandage covering a recent biopsy site that looks CDI, there is also a proximal right groin biopsy site that also appears to be CDI. Overall there is no concerning acute abnormalities to the skin exam) Extremities: positive: Non-tender, Full ROM, No pedal edema Neurologic/Psychiatric: positive: Oriented x3, CN's nml (2-12), Motor nml Sepsis Event Note (H) - Evaluation Current Stage of Sepsis: Sepsis Possible source of Sepsis: positive: Pulmonary, Skin/soft tissue Confirmed Source and Organism (if known) of Sepsis: Based on chest x-ray, most probable is pulmonary Conclusion/Plan - Problem List (1) Sepsis due to pneumonia Conclusion/Plan: Based on chest x-ray results, most likely patient has community-acquired pneumonia with sepsis. This is likely triggered his atrial fibrillation into an RVR. Otherwise however his blood pressure is maintained and his overall presentation appearing to be toxic. He seems to have responded well to IV fluids and initial doses of antibiotics. The patient will be admitted on azithromycin and Rocephin with IV fluids and repeat lactic acid will be performed at the 3-hour nessa. His sepsis was present on admission. (2) Atrial fibrillation with RVR Conclusion/Plan: Secondary to sepsis most likely, has responded well to Cardizem though with his sepsis this is likely clouding the picture of tachycardia. We will continue his home medications including his metoprolol which is very high dose of 300 mg daily, and if necessary will add long acting Cardizem orally.He does have a associate doctor and I am unable to confirm his most recent echocardiogram. Tomorrow if we cannot locate one at the medical records office of his associate doctor we may need to order a repeat echocardiogram. (3) Metastatic melanoma Conclusion/Plan: Recent treatment is unlikely to be directly related to the sepsis however may be worth a call to the oncologist office tomorrow just to let them know and also see if there is anything we need to be aware of with respect to his recent immunomodulating treatment (4) GERD (gastroesophageal reflux disease) Conclusion/Plan: Continue home Protonix Qualifiers: Esophagitis presence: esophagitis presence not specified Qualified Code(s): K21.9 - Gastro-esophageal reflux disease without esophagitis (5) Alcohol abuse Conclusion/Plan: Patient was counseled to cut down on his alcohol. He denies any known history of withdrawal. I will add as needed Ativan and pending any more signs of alcohol withdrawal will start CIAZ protocol. - Lab Results Lab results reviewed: Yes Fish Bones: 10/13/18 21:54 10/13/18 20:58 - Diagnostic Imaging Results Diagnostic Imaging Results: positive: Final report reviewed, Read independently - EKG Results EKG Interpreted Independently: Yes EKG Comparison: Old EKG unavailable Core Measures - Anticipated LOS I expect patient to be DC'd or transferred within 96 hours.: Yes - DVT/VTE - Prophylaxis VTE/DVT Device ordered at admit?: Yes
[2018-10-14] MEDS ORDERED: LORazepam 2 MG/ML VIAL IVP PRN (00:34)
[2018-10-14] MEDS: SODIUM CHLORIDE FLUSH 0.9% 10 ML SYRINGE IVP SCH ×3 (02:10→21:51)
[2018-10-14] MEDS: SODIUM CHLORIDE 0.9% 1,000 ML IV SCH ×2 (02:13→11:13)
[2018-10-14 05:02] LABS: HGB - HEMOGLOBIN 13.2 g/dL (14.0-18.0); MEAN CORPUSCULAR HEMOGLOBIN 32.3 pg (27.0-31.0); MEAN CORPUSCULAR HGB CONC 34.6 g/dL (32.0-36.0); MEAN CORPUSCULAR VOLUME 93.3 fL (80.0-94.0); MEAN PLATELET VOLUME 8.1 fL (7.4-11.4); RED BLOOD COUNT 4.1 10^6/uL (4.70-6.10); RED CELL DISTRIBUTION WIDTH 14.2 % (12.0-15.0); WHITE BLOOD COUNT 13.3 x10^3/uL (4.8-10.8)
[2018-10-14 05:13] LABS: CALCIUM 8.1 mg/dL (8.5-10.3); CREATININE 1.1 mg/dL (0.6-1.2)
[2018-10-14] MEDS: PANTOPRAZOLE 40 MG VIAL IVP SCH (06:35)
[2018-10-14] MEDS: SODIUM CHLORIDE FLUSH 0.9% 10 ML SYRINGE IVP PRN (06:36)
[2018-10-14] MEDS: POLYETHYLENE GLYCOL 3350 17 GM PACKET PO SCH (08:51)
[2018-10-14] MEDS: APIXABAN 5 MG TABLET PO SCH ×2 (08:51→21:50)
[2018-10-14] MEDS: LISINOPRIL 5 MG TABLET PO SCH (08:51)
[2018-10-14] MEDS: DIGOXIN 125 MCG TABLET PO SCH (08:51)
[2018-10-14] MEDS ORDERED: METOPROLOL SUCCINATE 50 MG TABLET PO SCH (09:00)
[2018-10-14] MEDS ORDERED: diltiaZEM CD 180 MG CAPSULE PO SCH (09:00)
[2018-10-14] MEDS ORDERED: CALCIUM CARBONATE CHEW 500 MG TABLET PO PRN ×2 (09:23→12:49)
--- NOTE | 2018-10-14 12:54 | PROVIDER PROGRESS NOTE ---
Subjective - Prog Note Date Prog Note Date: 10/14/18 - Subjective Pt reports feeling: Improved Subjective: pt report he feel better. no fever, chill, or chest pain. pt concern his home meds, pharmacy will see pt and confirm his home meds, then will reconcile. Current Medications - Current Medications Current Medications: Active Medications Acetaminophen (Tylenol) 650 mg PO Q4HR PRN PRN Reason: Pain 1 to 4 Hydrocodone Bitart/Acetaminophen ([place] 5/325) 1 tab PO Q4HR PRN PRN Reason: Pain 5 to 7 Apixaban (Eliquis) 5 mg PO BID [facility] Last Admin: 10/14/18 08:51 Dose: 5 mg Calcium Carbonate/Glycine (Tums) 500 mg PO Q4H PRN PRN Reason: Heartburn Digoxin (Lanoxin) 125 mcg PO DAILY [facility] Last Admin: 10/14/18 08:51 Dose: 125 mcg Diltiazem HCl (Cardizem Cd) 180 mg PO DAILY [facility] Last Admin: 10/14/18 08:51 Dose: 180 mg Sodium Chloride (Normal Saline 0.9%) 1,000 mls @ 100 mls/hr IV .Q10H [facility] Last Admin: 10/14/18 11:13 Dose: 100 mls/hr Azithromycin 250 mg/ Sodium (Chloride) 250 mls @ 250 mls/hr IV HS [facility] Ceftriaxone Sodium 2 gm/ (Sodium Chloride) 100 mls @ 200 mls/hr IV DAILY@2200 [facility] Lisinopril (Zestril) 10 mg PO DAILY [facility] Last Admin: 10/14/18 08:51 Dose: 10 mg Lorazepam (Ativan Inj (Vial)) 1 mg IVP Q2HR PRN PRN Reason: Alcohol Withdrawal Morphine Sulfate (Morphine (Carpuject)) 2 mg IVP Q2HR PRN PRN Reason: Pain 8 to 10 Ondansetron HCl (Zofran Inj) 4 mg IVP Q6HR PRN PRN Reason: Nausea / Vomiting Pantoprazole Sodium (Protonix) 40 mg IVP QDAC [facility] Last Admin: 10/14/18 06:35 Dose: 40 mg Polyethylene Glycol (Miralax) 17 gm PO DAILY [facility] Last Admin: 10/14/18 08:51 Dose: Not Given Prednisone (Deltasone) 2.5 mg PO DAILY [facility] Prochlorperazine Edisylate (Compazine Inj) 10 mg IVP Q6HR PRN PRN Reason: Nausea / Vomiting Sodium Chloride (Normal Saline Flush 0.9%) 10 ml IVP PRN PRN PRN Reason: NEEDED PER PROVIDER ORDERS Last Admin: 10/14/18 06:36 Dose: 10 ml Sodium Chloride (Normal Saline Flush 0.9%) 10 ml IVP 0100,0900,1700 ESTELA Last Admin: 10/14/18 08:52 Dose: Not Given Temazepam (Restoril) 15 mg PO QPM PRN PRN Reason: Insomnia Digoxin 125 mcg PO DAILY 01/02/17 Apixaban [Eliquis] 5 mg PO BID 01/20/18 Lisinopril 10 mg PO DAILY 01/20/18 Calcium Carbonate [Tums (Calcium Carbonate 500mg)] 500 mg PO Q4H PRN 10/14/18 Metoprolol Succinate [Toprol Xl] 150 mg PO BID 10/14/18 Omeprazole 40 mg PO BID 10/14/18 predniSONE [Deltasone] 2.5 mg PO DAILY 10/14/18 Objective - Vital Signs/Intake & Output Reviewed Vital Signs: Yes Vital Signs: Vital Signs x48h Temp Pulse Resp BP Pulse Ox 10/14/18 07:23 36.6 C 99 19 94/59 L 92 10/14/18 06:02 36.4 C L 98 18 100/49 L 96 Intake & Output: Intake & Output 10/11/18 10/12/18 10/13/18 10/14/18 23:59 23:59 23:59 23:59 Intake Total 1140 1510 Balance 1140 1510 - Objective General Appearance: positive: No acute distress, Alert. negative: Lethargic Eyes Bilateral: positive: Normal inspection, PERRL, No lid inflammation, Conjunctivae nml ENT: positive: ENT inspection nml, Pharynx nml, No signs of dehydration. neg ative: Purulent nasal drainage, Pharyngeal erythema, Oral lesions Neck: positive: Nml inspection, Thyroid nml, No JVD, Trachea midline. negative: Thyromegaly, Lymphadenopathy (R), Lymphadenopathy (L), Stiff neck, Swelling/bruising, Tracheal deviation Respiratory: positive: Chest non-tender, No respiratory distress, Breath sounds nml. negative: Wheezes, Rales, Rhonchi Cardiovascular: positive: Regular rate & rhythm, No murmur, No gallop. negative: Irregularly irregular, Extrasystoles, Tachycardia, Bradycardia, JVD present, Systolic murmur, Diastolic murmur Peripheral Pulses: 2+ Radial (R), 2+ Radial (L), 2+ Dorsalis pedis (R), 2+ Dorsalis pedis (L) Abdomen: positive: Non-tender, No organomegaly, Nml bowel sounds, No distention. negative: Tenderness, Guarding, Rebound Back: positive: Nml inspection. negative: CVA tenderness (R), CVA tenderness (L) Skin: positive: Color nml, No rash, Warm, Dry. negative: Cyanosis, Diaphoresis, Pallor Extremities: positive: Non-tender, Full ROM, Nml appearance. negative: Calf tenderness, Joint swelling, Joe's sign/cords Neurologic/Psychiatric: positive: Oriented x3, Motor nml, Sensation nml, Mood/affect nml. negative: Weakness, Sensory loss, Facial droop, Slurred/abnml speech, Depressed mood/affect - Lab Results Fish Bones: 10/14/18 04:25 10/14/18 04:25 Other Labs: Lab Results x24hrs 10/14/18 10/14/18 10/13/18 Range/Units 04:25 04:25 23:55 WBC 13.3 H (4.8-10.8) x10^3/uL RBC 4.10 L (4.70-6.10) 10^6/uL Hgb 13.2 L (14.0-18.0) g/dL Hct 38.2 L (42.0-52.0) % MCV 93.3 (80.0-94.0) fL MCH 32.3 H (27.0-31.0) pg MCHC 34.6 (32.0-36.0) g/dL RDW 14.2 (12.0-15.0) % Plt Count 253 (130-450) 10^3/uL MPV 8.1 (7.4-11.4) fL Neut # (Auto) (1.5-6.6) 10^3/uL Lymph # (Auto) (1.5-3.5) 10^3/uL Park # (Auto) (0.0-1.0) 10^3/uL Eos # (Auto) (0.0-0.7) 10^3/uL Baso # (Auto) (0.0-0.1) 10^3/uL Absolute Nucleated RBC x10^3/uL Nucleated RBC % /100WBC Sodium 134 L (135-145) mmol/L Potassium 3.8 (3.5-5.0) mmol/L Chloride 103 (101-111) mmol/L Carbon Dioxide 21 (21-32) mmol/L Anion Gap 10.0 (6-13) BUN 16 (6-20) mg/dL Creatinine 1.1 (0.6-1.2) mg/dL Estimated GFR (MDRD) 66 L (>89) Glucose 112 H (70-100) mg/dL Lactic Acid 2.4 H (0.5-2.2) mmol/L Calcium 8.1 L (8.5-10.3) mg/dL Total Bilirubin (0.2-1.0) mg/dL AST (10-42) IU/L ALT (10-60) IU/L Alkaline Phosphatase (42-121) IU/L Total Creatine Kinase (22-269) IU/L CK-MB (CK-2) (0.6-6.3) ng/mL Troponin I (<0.49) ng/mL Total Protein (6.7-8.2) g/dL Albumin (3.2-5.5) g/dL Globulin (2.1-4.2) g/dL Albumin/Globulin Ratio (1.0-2.2) Lipase (22-51) U/L Urine Color Urine Clarity (CLEAR) Urine pH (5.0-7.5) PH Ur Specific [place] (1.002-1.030) Urine Protein (NEGATIVE) mg/dL Urine Glucose (UA) (NEGATIVE) mg/dL Urine Ketones (NEGATIVE) mg/dL Urine Occult Blood (NEGATIVE) Urine Nitrite (NEGATIVE) Urine Bilirubin (NEGATIVE) Urine Urobilinogen (NORMAL) E.U./dL Ur Leukocyte Esterase (NEGATIVE) Urine RBC (0-5) /HPF Urine WBC (0-3) /HPF Ur Squamous Epith Cells (<= Few) Urine Bacteria (None Seen) /HPF Ur Microscopic Review Urine Culture Comments Last Dose Date Last Dose Time Digoxin ng/mL Ethyl Alcohol mg/dL Influenza A (Rapid) (Negative) Influenza B (Rapid) (Negative) 10/13/18 10/13/18 10/13/18 Range/Units 21:54 20:58 20:58 WBC 12.8 H (4.8-10.8) x10^3/uL RBC 4.51 L (4.70-6.10) 10^6/uL Hgb 14.4 (14.0-18.0) g/dL Hct 43.3 (42.0-52.0) % MCV 95.9 H (80.0-94.0) fL MCH 31.9 H (27.0-31.0) pg MCHC 33.2 (32.0-36.0) g/dL RDW 14.0 (12.0-15.0) % Plt Count 254 (130-450) 10^3/uL MPV 7.8 (7.4-11.4) fL Neut # (Auto) 10.5 H (1.5-6.6) 10^3/uL Lymph # (Auto) 1.4 L (1.5-3.5) 10^3/uL Park # (Auto) 0.4 (0.0-1.0) 10^3/uL Eos # (Auto) 0.3 (0.0-0.7) 10^3/uL Baso # (Auto) 0.1 (0.0-0.1) 10^3/uL Absolute Nucleated RBC 0.02 x10^3/uL Nucleated RBC % 0.1 /100WBC Sodium (135-145) mmol/L Potassium (3.5-5.0) mmol/L Chloride (101-111) mmol/L Carbon Dioxide (21-32) mmol/L Anion Gap (6-13) BUN (6-20) mg/dL Creatinine (0.6-1.2) mg/dL Estimated GFR (MDRD) (>89) Glucose (70-100) mg/dL Lactic Acid 3.7 H* (0.5-2.2) mmol/L Calcium (8.5-10.3) mg/dL Total Bilirubin (0.2-1.0) mg/dL AST (10-42) IU/L ALT (10-60) IU/L Alkaline Phosphatase (42-121) IU/L Total Creatine Kinase (22-269) IU/L CK-MB (CK-2) (0.6-6.3) ng/mL Troponin I (<0.49) ng/mL Total Protein (6.7-8.2) g/dL Albumin (3.2-5.5) g/dL Globulin (2.1-4.2) g/dL Albumin/Globulin Ratio (1.0-2.2) Lipase (22-51) U/L Urine Color Urine Clarity (CLEAR) Urine pH (5.0-7.5) PH Ur Specific [place] (1.002-1.030) Urine Protein (NEGATIVE) mg/dL Urine Glucose (UA) (NEGATIVE) mg/dL Urine Ketones (NEGATIVE) mg/dL Urine Occult Blood (NEGATIVE) Urine Nitrite (NEGATIVE) Urine Bilirubin (NEGATIVE) Urine Urobilinogen (NORMAL) E.U./dL Ur Leukocyte Esterase (NEGATIVE) Urine RBC (0-5) /HPF Urine WBC (0-3) /HPF Ur Squamous Epith Cells (<= Few) Urine Bacteria (None Seen) /HPF Ur Microscopic Review Urine Culture Comments Last Dose Date Not Reportable Last Dose Time Not Reportable Digoxin 0.6 ng/mL Ethyl Alcohol mg/dL Influenza A (Rapid) (Negative) Influenza B (Rapid) (Negative) 10/13/18 10/13/18 10/13/18 Range/Units 20:58 20:58 20:31 WBC (4.8-10.8) x10^3/uL RBC (4.70-6.10) 10^6/uL Hgb (14.0-18.0) g/dL Hct (42.0-52.0) % MCV (80.0-94.0) fL MCH (27.0-31.0) pg MCHC (32.0-36.0) g/dL RDW (12.0-15.0) % Plt Count (130-450) 10^3/uL MPV (7.4-11.4) fL Neut # (Auto) (1.5-6.6) 10^3/uL Lymph # (Auto) (1.5-3.5) 10^3/uL Park # (Auto) (0.0-1.0) 10^3/uL Eos # (Auto) (0.0-0.7) 10^3/uL Baso # (Auto) (0.0-0.1) 10^3/uL Absolute Nucleated RBC x10^3/uL Nucleated RBC % /100WBC Sodium 136 (135-145) mmol/L Potassium 3.9 (3.5-5.0) mmol/L Chloride 103 (101-111) mmol/L Carbon Dioxide 21 (21-32) mmol/L Anion Gap 12.0 (6-13) BUN 16 (6-20) mg/dL Creatinine 1.2 (0.6-1.2) mg/dL Estimated GFR (MDRD) 60 L (>89) Glucose 102 H (70-100) mg/dL Lactic Acid (0.5-2.2) mmol/L Calcium 9.0 (8.5-10.3) mg/dL Total Bilirubin 1.1 H (0.2-1.0) mg/dL AST 33 (10-42) IU/L ALT 29 (10-60) IU/L Alkaline Phosphatase 39 L (42-121) IU/L Total Creatine Kinase 61 (22-269) IU/L CK-MB (CK-2) 1.3 (0.6-6.3) ng/mL Troponin I < 0.04 (<0.49) ng/mL Total Protein 7.5 (6.7-8.2) g/dL Albumin 4.1 (3.2-5.5) g/dL Globulin 3.4 (2.1-4.2) g/dL Albumin/Globulin Ratio 1.2 (1.0-2.2) Lipase 34 (22-51) U/L Urine Color Urine Clarity (CLEAR) Urine pH (5.0-7.5) PH Ur Specific [place] (1.002-1.030) Urine Protein (NEGATIVE) mg/dL Urine Glucose (UA) (NEGATIVE) mg/dL Urine Ketones (NEGATIVE) mg/dL Urine Occult Blood (NEGATIVE) Urine Nitrite (NEGATIVE) Urine Bilirubin (NEGATIVE) Urine Urobilinogen (NORMAL) E.U./dL Ur Leukocyte Esterase (NEGATIVE) Urine RBC (0-5) /HPF Urine WBC (0-3) /HPF Ur Squamous Epith Cells (<= Few) Urine Bacteria (None Seen) /HPF Ur Microscopic Review Urine Culture Comments Last Dose Date Last Dose Time Digoxin ng/mL Ethyl Alcohol < 5.0 mg/dL Influenza A (Rapid) Negative (Negative) Influenza B (Rapid) Negative (Negative) 10/13/18 Range/Units 19:50 WBC (4.8-10.8) x10^3/uL RBC (4.70-6.10) 10^6/uL Hgb (14.0-18.0) g/dL Hct (42.0-52.0) % MCV (80.0-94.0) fL MCH (27.0-31.0) pg MCHC (32.0-36.0) g/dL RDW (12.0-15.0) % Plt Count (130-450) 10^3/uL MPV (7.4-11.4) fL Neut # (Auto) (1.5-6.6) 10^3/uL Lymph # (Auto) (1.5-3.5) 10^3/uL Park # (Auto) (0.0-1.0) 10^3/uL Eos # (Auto) (0.0-0.7) 10^3/uL Baso # (Auto) (0.0-0.1) 10^3/uL Absolute Nucleated RBC x10^3/uL Nucleated RBC % /100WBC Sodium (135-145) mmol/L Potassium (3.5-5.0) mmol/L Chloride (101-111) mmol/L Carbon Dioxide (21-32) mmol/L Anion Gap (6-13) BUN (6-20) mg/dL Creatinine (0.6-1.2) mg/dL Estimated GFR (MDRD) (>89) Glucose (70-100) mg/dL Lactic Acid (0.5-2.2) mmol/L Calcium (8.5-10.3) mg/dL Total Bilirubin (0.2-1.0) mg/dL AST (10-42) IU/L ALT (10-60) IU/L Alkaline Phosphatase (42-121) IU/L Total Creatine Kinase (22-269) IU/L CK-MB (CK-2) (0.6-6.3) ng/mL Troponin I (<0.49) ng/mL Total Protein (6.7-8.2) g/dL Albumin (3.2-5.5) g/dL Globulin (2.1-4.2) g/dL Albumin/Globulin Ratio (1.0-2.2) Lipase (22-51) U/L Urine Color YELLOW Urine Clarity CLEAR (CLEAR) Urine pH 6.0 (5.0-7.5) PH Ur Specific [place] 1.025 (1.002-1.030) Urine Protein NEGATIVE (NEGATIVE) mg/dL Urine Glucose (UA) NEGATIVE (NEGATIVE) mg/dL Urine Ketones NEGATIVE (NEGATIVE) mg/dL Urine Occult Blood SMALL H (NEGATIVE) Urine Nitrite NEGATIVE (NEGATIVE) Urine Bilirubin NEGATIVE (NEGATIVE) Urine Urobilinogen 0.2 (NORMAL) (NORMAL) E.U./dL Ur Leukocyte Esterase NEGATIVE (NEGATIVE) Urine RBC 0-5 (0-5) /HPF Urine WBC 0-3 (0-3) /HPF Ur Squamous Epith Cells RARE Squamous (<= Few) Urine Bacteria Rare (None Seen) /HPF Ur Microscopic Review INDICATED Urine Culture Comments NOT INDICATED Last Dose Date Last Dose Time Digoxin ng/mL Ethyl Alcohol mg/dL Influenza A (Rapid) (Negative) Influenza B (Rapid) (Negative) ABX Reporting Has patient been on IV antibiotics over the past 48 hours?: Yes Sepsis Event Note (H) - Evaluation Current Stage of Sepsis: Sepsis Possible source of Sepsis: positive: Pulmonary, Skin/soft tissue Assessment/Plan - Problem List (1) Sepsis due to pneumonia Impression: 10/14 WBC is still elevated. No fever, chill, cough, shortness of breath continue antibiotics continue IVF of NS continue lab and vital monitor pt just finish Immuno therapy for his MM, Immuno therapy can cause over-active immuno attach reaction. resume home lower dosage of Prednisone (2) Atrial fibrillation with RVR Now pt's HR is around 90-99, but SBP is less than 100 continue Dig and Cardizem, hold Metoprolol now continue tele and vital monitor (3) Metastatic melanoma Conclusion/Plan: stable, continue followup his oncologist as out-pt (4) GERD (gastroesophageal reflux disease) Conclusion/Plan: Continue home Protonix (5) Alcohol abuse Conclusion/Plan: continue CIWA protocol. advise alcohol quit
[2018-10-14] MEDS ORDERED: NON FORMULARY MED (Omeprazole [Omeprazole] 40 MG) PO SCH (13:00)
[2018-10-14] MEDS: predniSONE 5 MG TABLET PO SCH (13:31)
[2018-10-14] MEDS ORDERED: AZITHROMYCIN INJ 250 MG in SODIUM CHLORIDE 0.9% 250 ML IV SCH (21:00)
[2018-10-14] MEDS ORDERED: cefTRIAXone 2 GM in SODIUM CHLORIDE 0.9% MINIBAG 100 ML IV SCH (22:00)
[2018-10-15] MEDS: SODIUM CHLORIDE FLUSH 0.9% 10 ML SYRINGE IVP SCH ×2 (04:13→09:12)
[2018-10-15 05:30] LABS: HGB - HEMOGLOBIN 12.4 g/dL (14.0-18.0); MEAN CORPUSCULAR HEMOGLOBIN 32.6 pg (27.0-31.0); MEAN CORPUSCULAR HGB CONC 33.8 g/dL (32.0-36.0); MEAN CORPUSCULAR VOLUME 96.3 fL (80.0-94.0); MEAN PLATELET VOLUME 8.2 fL (7.4-11.4); RED BLOOD COUNT 3.8 10^6/uL (4.70-6.10); RED CELL DISTRIBUTION WIDTH 13.8 % (12.0-15.0); WHITE BLOOD COUNT 10.7 x10^3/uL (4.8-10.8)
[2018-10-15 05:34] LABS: CALCIUM 8.2 mg/dL (8.5-10.3)
[2018-10-15] MEDS: PANTOPRAZOLE 40 MG VIAL IVP SCH (06:06)
[2018-10-15] MEDS: SODIUM CHLORIDE FLUSH 0.9% 10 ML SYRINGE IVP PRN (06:06)
[2018-10-15] MEDS ORDERED: METOPROLOL SUCCINATE 50 MG TABLET PO SCH (09:00)
[2018-10-15] MEDS: predniSONE 5 MG TABLET PO SCH (09:10)
[2018-10-15] MEDS: LISINOPRIL 5 MG TABLET PO SCH (09:10)
[2018-10-15] MEDS: POLYETHYLENE GLYCOL 3350 17 GM PACKET PO SCH (09:11)
[2018-10-15] MEDS: DIGOXIN 125 MCG TABLET PO SCH (09:11)
[2018-10-15] MEDS: APIXABAN 5 MG TABLET PO SCH (09:11)
--- NOTE | 2018-10-15 11:14 | Discharge Plan ---
Discharge Plan Disposition: Home, Self Care Condition: Poor Prescriptions: Amox/Clav 875/125 [Augmentin] 1 each PO Q12H #10 tablet Diet: Regular Activity Restrictions: Activity as Tolerated Shower Restrictions: No (fall precaution) Instruction Topics: Pneumonia, Amoxicillin Clavulanic Acid tablets Additional Instructions or Follow Up instructions: You may followup your PCP in one week. 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 Augmentin is prescribed for you to continue your antibiotics course to treat your pneumonia. No Smoking: If you smoke, Please STOP! Call for help.
--- NOTE | 2018-10-15 11:15 | DISCHARGE SUMMARY ---
Discharge Summary Discharge Date: 10/15/18 Discharging Provider: LUO Primary Care Provider: Alex Padilla Condition at Discharge: Poor Discharge Disposition: 01 Home, Self Care Discharge Facility Name: Home - DIAGNOSES Admission Diagnoses: (1) Sepsis due to pneumonia (2) Atrial fibrillation with RVR (3) Metastatic melanoma (4) GERD (gastroesophageal reflux disease) (5) Alcohol abuse Discharge Diagnoses with Status of Each Condition: 1) Sepsis due to pneumonia WBC became normal after treatment. 95% sats on room air after treatment. pt has no fever, chill. blood culture is negative preliminary. 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 pt is prescribed antibiotics to continue his treatment course. (2) Atrial fibrillation with RVR pt's home meds resume and his HR is controlled. continue home meds, followup PCP management. (3) Metastatic melanoma stable. followup his oncologist (4) GERD (gastroesophageal reflux disease) stable (5) Alcohol abuse stable - HPI History of Present Illness: refer from Dr. Huff's HPI on 10/13/18 for pt as the following: Patient is a 68-year-old male who has a past medical history of Atrial fibrillation, malignant melanoma of the right heel with metastatic lesions to the right lower extremity status post resection with right sided lymph node resection who is being treated at the [facility]. He went there today for a T VAC, which is a transcutaneous injectable immunomodulator treatment. Things were going fairly well however when he took the ferry to return to [facility] he started to have violent shaking and chills and described what is likely rigors. Shortly after they returned to the [facility] their drive back [place], he continued to feel worse and at this point paramedics were called. Patient has a known history of atrial fibrillation but this has been fairly well controlled and is status post 2 failed ablations in the last year. In the emergency room evaluation produced findings of atrial fibrillation with rapid ventricular response with heart rates in the 150s initially.He eventually received 50 mg of IV Cardizem, 10 mg at a time,Which was successful in bringing his heart rate down to the 115-120 range. Labs were also pertinent for an elevated lactic acid of 3.7 with only mildly increased WBCs and no other significant abnormality. A chest x-ray was however suggestive of a possible consolidation at the base of the left lung and hospitalist service was called to admit the patient for possible community-acquired pneumonia with sepsis and atrial fibrillation with rapid ventricular response. - HOSPITAL COURSE Hospital Course: pt was admitted for pneumonia and afib with RVR. pt was treated with antibiotics. Afib RVR was treated with his home meds dig 125mcg and metoprolol 150mg bid. pt's HR is controlled. pt is asymptomatic, denies palpitations, chest pain, dizziness. 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 pt is prescribed antibiotics to continue the treatment course. - ALLERGIES Allergies/Adverse Reactions: Allergies Allergy/AdvReac Type Severity Reaction Status Date / Time No Known Drug Allergies Allergy Verified 10/13/18 19:55 - MEDICATIONS Home Medications: Ambulatory Orders Medication Instructions Recorded Confirmed Digoxin 125 mcg PO DAILY 01/02/17 10/14/18 Apixaban [Eliquis] 5 mg PO BID 01/20/18 10/14/18 Lisinopril 10 mg PO DAILY 01/20/18 10/14/18 Calcium Carbonate [Tums (Calcium 500 mg PO Q4H PRN 10/14/18 10/14/18 Carbonate 500mg)] Metoprolol Succinate [Toprol Xl] 150 mg PO BID 10/14/18 10/14/18 Omeprazole 40 mg PO BID 10/14/18 10/14/18 predniSONE [Deltasone] 2.5 mg PO DAILY 10/14/18 10/14/18 Amox/Clav 875/125 [Augmentin] 1 each PO Q12H #10 tablet 10/15/18 LORazepam [Ativan] 0.5 mg PO Q6H PRN #10 tablet 10/15/18 - PHYSICAL EXAM AT DISCHARGE General Appearance: positive: No acute distress, Alert. negative: Lethargic Eyes Bilateral: positive: Normal inspection, PERRL, No lid inflammation, Conjunctivae nml ENT: positive: ENT inspection nml, Pharynx nml, No signs of dehydration. negative: Purulent nasal drainage, Pharyngeal erythema, Oral lesions Neck: positive: Nml inspection, Thyroid nml, No JVD, Trachea midline. negative: Thyromegaly, Lymphadenopathy (R), Lymphadenopathy (L), Stiff neck, Swelling/bruising, Tracheal deviation Respiratory: positive: Chest non-tender, No respiratory distress, Breath sounds nml. negative: Wheezes, Rales, Rhonchi Cardiovascular: positive: Regular rate & rhythm, No murmur, No gallop. negative: Irregularly irregular, Extrasystoles, Tachycardia, Bradycardia, JVD present, Systolic murmur, Diastolic murmur Peripheral Pulses: positive: 2+ Abdomen: positive: Non-tender, No organomegaly, Nml bowel sounds, No distention. negative: Tenderness, Guarding, Rebound Back: positive: Nml inspection. negative: CVA tenderness (R), CVA tenderness (L) Skin: positive: Color nml, No rash, Warm, Dry. negative: Cyanosis, Diaphoresis, Pallor Extremities: positive: Non-tender, Full ROM, Nml appearance. negative: Calf tenderness, Joint swelling, Joe's sign/cords Neurologic/Psychiatric: positive: Oriented x3, Motor nml, Sensation nml, Mood/affect nml. negative: Weakness, Sensory loss, Facial droop, Slurred/abnml speech, Depressed mood/affect - LABS Result Diagrams: 10/15/18 04:30 10/15/18 04:30 - SEPSIS Current Stage of Sepsis: Sepsis Possible source of Sepsis: Pulmonary, Skin/soft tissue - FOLLOW UP Follow Up: You may followup your PCP in one week. 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 Augmentin is prescribed for you to continue your a ntibiotics course to treat your pneumonia. - TIME SPENT Time Spent in Discharge (Minutes): 50
[2018-10-15 12:30] VITALS: BP 115/59
== END 2018-10-15 12:25 | disposition home or self-care (01) | DRG 871 ==
LOC: EDUNIT# → ED 19:42 → MS3 23:24
PROVIDERS: ADMIT Family Medicine Sports Medicine; ATTEND Nurse Practitioner Gerontology
DX: A41.9 Sepsis, unspecified organism (principal); J18.1 Lobar pneumonia, unspecified organism; C79.2 Secondary malignant neoplasm of skin; C79.9 Secondary malignant neoplasm of unspecified site; I48.91 Unspecified atrial fibrillation; K21.9 Gastro-esophageal reflux disease without esophagitis; F10.10 Alcohol abuse, uncomplicated; C43.71 Malignant melanoma of right lower limb, including hip; I10 Essential (primary) hypertension; J44.9 Chronic obstructive pulmonary disease, unspecified; Z79.899 Other long term (current) drug therapy; Z79.01 Long term (current) use of anticoagulants; Z79.52 Long term (current) use of systemic steroids
CPT/HCPCS: 36415; 71045; 80048; 80053; 80162; 80320; 81001; 81003; 82550; 82553; 83605; 83690; 84484; 85025; 85027; 87040; 87086; 87275; 87276; 93005; 93306; 96361; 96365; 96375; 96376; 99284; 99285

== ENCOUNTER 2018-10-26 08:00 | Outpatient (CLI) | payer MEDICARE, OTHER | END 2018-10-26 23:59 | disposition home or self-care (01) | LOC: LAB 08:00 → LAB.R 23:59 | PROVIDERS: ATTEND Internal Medicine | DX: R19.7 Diarrhea, unspecified (principal) | CPT/HCPCS: 87493 ==

== ENCOUNTER 2019-04-16 09:32 | Emergency (ER) | payer MEDICARE, OTHER ==
[2019-04-16] MEDS ORDERED: FOLIC ACID INJ 1 MG, THIAMINE INJ 100 MG, MAGNESIUM SULFATE 2 GM, MULTIVITAMIN 10 ML in... IV STA ×5 (10:17)
--- NOTE | 2019-04-16 10:20 | ED Physician Documentation ---
PD HPI URI - Stated complaint Stated Complaint: COUGH/UNABLE TO EAT/WEIGHT LOSS - Chief complaint Chief Complaint: Resp - History obtained from History obtained from: Patient, Family - History of Present Illness Timing - onset: How many days ago (5) Timing duration: Days (5) Timing details: Gradual onset, Still present Associated symptoms: Nasal congestion, Productive cough, Dyspnea Improves by: Rest, Medication Worsened by: Activity Similar symptoms before: Diagnosis (pneumonia) Recently seen: Other - Additional information Additional information: 68-year-old male undergoing treatment for metastatic melanoma with Opdivo has developed cough congestion production of phlegm and shortness of breath. The patient has had a markedly reduced appetite over the past 3 weeks and has lost about 20 pounds. He does not feel like eating anything. He is still hydrating and making urine. He has site of aversion to food. He looks at food and will vomit. The patient indicates that he had previously been on Keytruda and with that he developed eosinophils in his stomach and required high-dose prednisone. He reports a good appetite with the prednisone. Review of Systems Constitutional: denies: Fever Eyes: denies: Decreased vision Ears: denies: Ear pain Nose: reports: Congestion. denies: Rhinorrhea / runny nose Throat: denies: Sore throat Cardiac: denies: Chest pain / pressure, Palpitations, Pedal edema, Calf pain Respiratory: reports: Dyspnea, Cough. denies: Wheezing GI: reports: Nausea. denies: Abdominal Pain : denies: Dysuria, Frequency Skin: denies: Rash Musculoskeletal: denies: Neck pain, Back pain, Extremity pain Neurologic: reports: Generalized weakness. denies: Focal weakness, Numbness PD PAST MEDICAL HISTORY - Past Medical History Past Medical History: Yes Cardiovascular: Hypertension, Atrial fibrillation Respiratory: COPD Endocrine/Autoimmune: None GI: GERD : None HEENT: None Psych: None Musculoskeletal: None Derm: None, Other - Past Surgical History Past Surgical History: Yes HEENT: Cataracts Derm: Skin grafts, Skin cancer surgery - Present Medications Home Medications: Ambulatory Orders Medication Instructions Recorded Confirmed RX: Digoxin 125 mcg PO DAILY 01/02/17 04/16/19 Apixaban [Eliquis] 5 mg PO BID 01/20/18 04/16/19 RX: Lisinopril 10 mg PO DAILY 01/20/18 04/16/19 Metoprolol Succinate [Toprol Xl] 150 mg PO BID 10/14/18 04/16/19 Omeprazole 40 mg PO BID 10/14/18 04/16/19 RX: predniSONE [Deltasone] 2.5 mg PO DAILY 10/14/18 04/16/19 Ondansetron HCl [Zofran] 4 mg PO Q6H PRN 04/16/19 04/16/19 - Allergies Allergies/Adverse Reactions: Allergies Allergy/AdvReac Type Severity Reaction Status Date / Time No Known Drug Allergies Allergy Verified 10/13/18 19:55 - Social History Does the pt smoke?: No Smoking Status: Former smoker Does the pt drink ETOH?: Yes Does the pt have substance abuse?: No - Immunizations Immunizations are current?: Yes - POLST Patient has POLST: No POLST Status: Full Code PD ED PE NORMAL - Vitals Vital signs reviewed: Yes (tachy and hypotensive ) - General General: Alert and oriented X 3, No acute distress, Well developed/nourished - HEENT HEENT: Atraumatic, PERRL, EOMI - Neck Neck: Supple, no meningeal sign, No bony TTP - Cardiac Cardiac: No murmur, Other (tachy and irregular with distant heart sounds ) - Respiratory Respiratory: Other (tachypneic at rest with diminished breath sounds and rhonchi in the right base. ) - Abdomen Abdomen: Soft, Non tender - Back Back: No CVA TTP, No spinal TTP - Derm Derm: Normal color, Warm and dry, No rash - Extremities Extremities: No deformity, No edema - Neuro Neuro: Alert and oriented X 3, dairy specialist 2-12 intact, No motor deficit, No sensory deficit, Normal speech Eye Opening: Spontaneous Motor: Obeys Commands Verbal: Oriented GCS Score: 15 - Psych Psych: Normal mood, Normal affect Results - Vitals Vitals: Vital Signs - 24 hr 04/16/19 04/16/19 04/16/19 09:35 11:00 11:30 Temperature 36.1 C L Heart Rate 107 H 97 91 Respiratory 20 19 20 Rate Blood Pressure 90/54 L 94/70 107/63 O2 Saturation 78 L 97 98 04/16/19 04/16/19 04/16/19 12:00 12:05 12:35 Temperature Heart Rate 86 78 86 Respiratory 17 17 19 Rate Blood Pressure 97/61 97/61 104/68 O2 Saturation 98 99 99 04/16/19 04/16/19 04/16/19 13:00 13:30 14:30 Temperature Heart Rate 96 99 83 Respiratory 18 17 14 Rate Blood Pressure 101/59 L 104/60 92/56 L O2 Saturation 100 99 100 04/16/19 04/16/19 15:30 16:30 Temperature Heart Rate 86 81 Respiratory 14 14 Rate Blood Pressure 94/64 92/48 L O2 Saturation 99 100 Oxygen O2 Source Room air - Labs Labs: Laboratory Tests 04/16/19 04/16/19 04/16/19 10:00 10:00 10:00 WBC 17.8 H RBC 4.07 L Hgb 12.9 L Hct 38.4 L MCV 94.3 H MCH 31.7 H MCHC 33.6 RDW 13.5 Plt Count 334 MPV 9.4 Neut # (Auto) 14.3 H Lymph # (Auto) 2.4 Cooke # (Auto) 0.9 Eos # (Auto) 0.0 Baso # (Auto) 0.1 Absolute Nucleated RBC 0.00 Nucleated RBC % 0.0 Bld Gas Analysis Time Sample Site ABG pH ABG pCO2 ABG pO2 ABG HCO3 ABG Total CO2 ABG O2 Saturation ABG Base Excess Oren Test VBG pH VBG pCO2 VBG pO2 VBG HCO3 VBG Total CO2 VBG O2 Saturation VBG Base Excess Room Air Sodium 133 L Potassium 5.1 H Chloride 106 Carbon Dioxide 8 L* Anion Gap 19.0 H BUN 103 H* Creatinine 7.9 H* Estimated GFR (MDRD) 7 L Glucose 127 H Lactic Acid Calcium 9.0 Total Bilirubin 0.8 AST 16 ALT 23 Alkaline Phosphatase 57 Troponin I < 0.04 Total Protein 8.7 H Albumin 3.7 Globulin 5.0 H Albumin/Globulin Ratio 0.7 L Lipase 117 H 04/16/19 04/16/19 04/16/19 10:00 15:08 15:55 WBC RBC Hgb Hct MCV MCH MCHC RDW Plt Count MPV Neut # (Auto) Lymph # (Auto) Cooke # (Auto) Eos # (Auto) Baso # (Auto) Absolute Nucleated RBC Nucleated RBC % Bld Gas Analysis Time 1606 Sample Site RIGHT RADIAL ABG pH 7.22 L ABG pCO2 20 L* ABG pO2 90 ABG HCO3 8.0 L ABG Total CO2 8.6 L* ABG O2 Saturation 96 ABG Base Excess -17.8 L Oren Test POSITIVE VBG pH 7.154 L VBG pCO2 28.0 L VBG pO2 51.8 H VBG HCO3 9.6 L VBG Total CO2 10.5 L VBG O2 Saturation 82.9 H VBG Base Excess -17.7 L Room Air YES Sodium Potassium Chloride Carbon Dioxide Anion Gap BUN Creatinine Estimated GFR (MDRD) Glucose Lactic Acid 1.3 Calcium Total Bilirubin AST ALT Alkaline Phosphatase Troponin I Total Protein Albumin Globulin Albumin/Globulin Ratio Lipase - Rads (name of study) chest Radiology: Prelim report reviewed (Impression: No acute cardiopulmonary abnormality demonstrated.), EMP read indepedently, See rad report Procedures - Bedside sono Bedside sono by EMP: With use of bedside ultrasound the kidneys are imaged and there is no evidence of hydronephrosis. The kidneys are sonographically nontender. - IVC sono (time) 1015 Bedside IVC sono: IVC measures (cm) (1.12), IVC collapsed c insp (cm) (complete), Dehydration (est 1+ liter deficit) PD MEDICAL DECISION MAKING - ED course Complexity details: reviewed old records, reviewed results, re-evaluated patient, considered differential, d/w patient, d/w family ED course: 68-year-old male who has not eaten developed respiratory cough and has rhonchi on exam. He is on Opdivo and there is concern for respiratory infiltration. He is dehydrated on interrogation the inferior vena cava estimating a 1+ liter deficit and he is administered a banana bag intravenously. His laboratory work indicates acute renal failure and I believe this is likely due to the OPDIVO. Dr. Purdy the oncologist at [facility] is consulted in the case and recommends transfer to the [facility] for treatment and further evaluation. Dr. Rosenberg [facility] oncologist is consulted and after review the patient will go to a CCU bed. The patient is acidotic, has a normal lactate and there is no evidence of obstruction on bedside ultrasound of the retroperitoneum. His potassium is 5.1 and maneuvers to lower this are hydration alone. Departure - Departure Disposition: 02 Transfer Acute Care Hosp Clinical Impression: Renal failure, acute Qualifiers: Acute renal failure type: unspecified Qualified Code(s): N17.9 - Acute kidney failure, unspecified Condition: Stable
[2019-04-16 10:23] LABS: BASOPHILS # (AUTO) 0.1 10^3/uL (0.0-0.1); BASOPHILS % (AUTO) 0.4 %; EOSINOPHILS % (AUTO) 0.1 %; HGB - HEMOGLOBIN 12.9 g/dL (14.0-18.0); LYMPHOCYTES # (AUTO) 2.4 10^3/uL (1.5-3.5); LYMPHOCYTES % (AUTO) 13.3 %; MEAN CORPUSCULAR HEMOGLOBIN 31.7 pg (27.0-31.0); MEAN CORPUSCULAR HGB CONC 33.6 g/dL (32.0-36.0); MEAN CORPUSCULAR VOLUME 94.3 fL (80.0-94.0); MEAN PLATELET VOLUME 9.4 fL (7.4-11.4); MONOCYTES # (AUTO) 0.9 10^3/uL (0.0-1.0); MONOCYTES % (AUTO) 5.2 %; NEUTROPHILS # (AUTO) 14.3 10^3/uL (1.5-6.6); NEUTROPHILS % (AUTO) 80.2 %; PLT - PLATELET COUNT 334 10^3/uL (130-450); RED BLOOD COUNT 4.07 10^6/uL (4.70-6.10); RED CELL DISTRIBUTION WIDTH 13.5 % (12.0-15.0); WHITE BLOOD COUNT 17.8 x10^3/uL (4.8-10.8)
[2019-04-16 10:48] LABS: ALBUMIN 3.7 g/dL (3.2-5.5); ALBUMIN/GLOBULIN RATIO 0.7 (1.0-2.2); BILIRUBIN,TOTAL 0.8 mg/dL (0.2-1.0); TOTAL PROTEIN 8.7 g/dL (6.7-8.2)
[2019-04-16 10:49] LABS: CREATININE 7.9 mg/dL (0.6-1.2)
--- NOTE | 2019-04-16 11:25 | XRAY Report ---
Reason: RLL rhonchi Procedure Date: 04/16/2019 Accession Number: [id number] / [id number] Procedure: XR - Chest 2 View X-Ray CPT Code: 72014 FULL RESULT: EXAM: CHEST RADIOGRAPHY EXAM DATE: 04/16/2019 10:34 AM. CLINICAL HISTORY: Shortness of breath. COMPARISON: CHEST 1 VIEW 10/13/2018 8:49 PM. TECHNIQUE: 2 views. FINDINGS: Lungs/Pleura: No focal opacities evident. No pleural effusion. No pneumothorax. Normal volumes. Mediastinum: Heart and mediastinal contours are unremarkable. Other: Right sided [id number] is seen terminating in the mid to lower SVC region. IMPRESSION: No acute cardiopulmonary abnormality demonstrated. RADIA
[2019-04-16 15:15] LABS: VBG PH 7.154 (7.31-7.41); VBG PO2 51.8 mmHg (25-47)
[2019-04-16 15:16] LABS: VBG BASE EXCESS -17.7 mmol/L (-2 - +2); VBG TOTAL CO2 10.5 mmol/L (24-29)
[2019-04-16 16:05] LABS: ABG PH 7.22 (7.35-7.45); ABG PO2 90 mmHg (80-100)
[2019-04-16 16:06] LABS: ABG BASE EXCESS -17.8 mmol/L (-2.0-3.0); ABG OXYGEN SATURATION 96 % (94-98); ALLEN TEST POSITIVE
[2019-04-16 16:07] LABS: ABG PCO2 20 mmHg (34-45)
[2019-04-16 16:08] LABS: ABG TCO2 8.6 MMOL/L (21.0-29.0)
[2019-04-16 18:34] LABS: BILIRUBIN,URINE NEGATIVE (NEGATIVE); GLUCOSE, URINE (UA) NEGATIVE (NEGATIVE); KETONES,URINE (UA) NEGATIVE (NEGATIVE); LEUKOCYTE ESTERASE, URINE TRACE (NEGATIVE); NITRITE,URINE NEGATIVE (NEGATIVE); OCCULT BLOOD,URINE SMALL (NEGATIVE); PH,URINE 6.5 PH (5.0-7.5); PROTEIN,URINE 30 mg/dL (NEGATIVE); UROBILINOGEN,URINE 0.2 (NORMAL) E.U./dL (NORMAL)
[2019-04-16 18:36] LABS: CLARITY,URINE HAZY (CLEAR)
[2019-04-16 18:42] LABS: SQUAMOUS EPITHELIAL CELL,UR NONE SEEN (<= Few)
[2019-04-16 18:43] LABS: BACTERIA,URINE Rare /HPF (None Seen)
[2019-04-16 19:42] VITALS: BP 112/52
== END 2019-04-16 19:44 | disposition short-term general hospital (02) ==
LOC: ED 09:32
DX: N17.9 Acute kidney failure, unspecified (principal); E86.0 Dehydration; E87.2 Acidosis; C43.9 Malignant melanoma of skin, unspecified; C79.9 Secondary malignant neoplasm of unspecified site; J44.9 Chronic obstructive pulmonary disease, unspecified; I10 Essential (primary) hypertension; I48.91 Unspecified atrial fibrillation; Z79.01 Long term (current) use of anticoagulants; Z87.891 Personal history of nicotine dependence
CPT/HCPCS: 36415; 36600; 71046; 80053; 81001; 82803; 83605; 83690; 84484; 85025; 87040; 87086; 96365; 99284; J3411; 36556; 81003; 99285